=== PATIENT | female | born 1985 | race Caucasian/White ===

== ENCOUNTER 2024-03-09 23:01 | Emergency (ER) | payer SELFPAY ==
[~2024-03-09] VITALS: Ht 165.1 cm; Wt 59.0 kg
[2024-03-09 23:18] VITALS: BP 101/66; PULSE 122; RESP 19; TEMP 98.1; O2SAT 99
== END 2024-03-10 05:52 | disposition left against medical advice (07) ==
LOC: ER 23:18
DX: F10.129 Alcohol abuse with intoxication, unspecified (principal); F19.90 Other psychoactive substance use, unspecified, uncomplicated; Y90.8 Blood alcohol level of 240 mg/100 ml or more
CPT/HCPCS: 36415; 80320; 99283; G0480